=== PATIENT | female | born 1945 | race American Indian/Alaskan Native ===

== ENCOUNTER 2019-03-06 17:36 | Emergency (ER) | payer MEDICARE ==
--- NOTE | 2019-03-06 17:51 | Emergency Department Report ---
Blank Doc - Documentation Documentation: pt presents for possible syncope denies dizziness, light-headedness, or CP before syncopal episode has a hx of dementia no COLVIN, no vision changes tingling sensation in the bilateral hands denies any pain states she did have a COLVIN initially denies any blood thinner never had syncopal episode before no SOB PMHx HTN former smoker 2012 former drinker 3 years ago no drug use
[2019-03-06 18:27] LABS: Basophils # (Auto) 0.1 K/mm3 (0.0-0.1); Basophils % (Auto) 0.8 % (0.0-1.8); Eosinophils % (Auto) 0.5 % (0.0-4.3); Hematocrit 30.3 % (30.3-42.9); Hemoglobin 10.1 gm/dl (10.1-14.3); Lymphocytes # (Auto) 1.2 K/mm3 (1.2-5.4); Lymphocytes % (Auto) 17.5 % (13.4-35.0); Mean Corpuscular HGB Conc 33 % (30-34); Mean Corpuscular Volume 85 fl (79-97); Monocytes # (Auto) 0.5 K/mm3 (0.0-0.8); Monocytes % (Auto) 7.7 % (0.0-7.3); Platelet Count 245 K/mm3 (140-440); Red Blood Count 3.57 M/mm3 (3.65-5.03); Red Cell Distribution Width 14.1 % (13.2-15.2)
--- NOTE | 2019-03-06 18:36 | Cat Scan Report ---
PROCEDURE: CT CERVICAL SPINE WO CON TECHNIQUE: Computerized tomography of the cervical spine was performed from the skull base to T1 wit hout contrast material. CT DOSE LENGTH PRODUCT: 311.1 mGycm HISTORY: syncope, fall COMPARISONS: None . FINDINGS: No acute fracture or subluxation. Vertebral body heights are maintained. Multilevel degenerative changes of cervical spine most prominent from C4-C7 with disc osteophyte comp lexes noted and mild to moderate central canal stenosis. Multilevel degenerative uncovertebral hypert rophic changes noted. Other: No additional findings . IMPRESSION: No acute fracture or subluxation. Multilevel degenerative changes of cervical spine most prominent from C4-C7 with disc osteophyte comp lexes noted and mild to moderate central canal stenosis. Multilevel degenerative uncovertebral hypert rophic changes noted. This document is electronically signed by Nicole Arshad MD., Mar 06 2019 06:33:54 PM ET
[2019-03-06 18:40] LABS: INR 1.04 (0.87-1.13); Partial Thromboplastin Time 26.4 Sec. (24.2-36.6)
[2019-03-06 18:43] LABS: Albumin 4.2 g/dL (3.9-5); Calcium 9.1 mg/dL (8.4-10.2)
--- NOTE | 2019-03-06 18:47 | Cat Scan Report ---
PROCEDURE: CT HEAD/BRAIN WO CON TECHNIQUE: Computerized tomography of the head was performed without contrast material. CT DOSE LENGTH PRODUCT: 884.8 mGycm HISTORY: Syncope, fall. COMPARISONS: None. FINDINGS: The ventricles are normal in size. There is mild evidence of chronic ischemic white matter disease. 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 There are no mass lesions. The re is no intracranial hemorrhage. The calvarium appears intact. The mastoid air cells and paranasal s inuses are clear as far as visualized. IMPRESSION: Normal study for age. This document is electronically signed by Osorio Mckeon MD., Mar 06 2019 06:45:28 PM ET
[2019-03-06] MEDS ORDERED: NACL 0.9% 1000 ML 1,000 ML IV ONE (20:47)
--- NOTE | 2019-03-06 20:52 | Emergency Department Report ---
ED Syncope HPI - General Chief Complaint: Fall Stated Complaint: FELL OUT/HEAD PAIN Time Seen by Provider: 03/06/19 17:48 Source: patient, family - History of Present Illness Initial Comments: Patient is a 74-year-old female with history of hypertension brought to the emergency room by her son for evaluation of syncopal episode and a fall that happened around 4 PM today. Son stated that his mother has been diagnosed with dementia so she does not remember much about when he came back from outside when he ring the chau and she told him that she is coming and he waited for her but she could not, so he opened the door and he found her sitting on the floor, sweating but alert oriented according to his report. Patient denied any prior history of chest pain, shortness of breath, weakness numbness or tingling sensation. Timing/Prior Episodes: no prior history, single episode today Precipitating Factors: Positive: lightheadedness Context: standing Loss of Consciousness: no loss of consciousness Current Symptoms: back to normal - Related Data Allergies/Adverse Reactions: Allergies No Known Allergies Allergy (Unverified 03/06/19 17:37) ED Review of Systems ROS: Stated complaint: FELL OUT/HEAD PAIN Other details as noted in HPI Comment: All other systems reviewed and negative Constitutional: denies: chills, fever Respiratory: denies: cough, orthopnea, shortness of breath, SOB with exertion Cardiovascular: denies: chest pain, palpitations Gastrointestinal: denies: abdominal pain, nausea Neurological: denies: headache, weakness, numbness, paresthesias ED Past Medical Hx - Past Medical History Hx Hypertension: Yes Additional medical history: dementia - Surgical History Past Surgical History?: No - Social History Smoking Status: Never Smoker Substance Use Type: None ED Physical Exam - General Limitations: No Limitations General appearance: alert, in no apparent distress - Head Head exam: Present: atraumatic, normocephalic, normal inspection - Eye Eye exam: Present: normal appearance - ENT ENT exam: Present: normal exam, normal orophraynx, mucous membranes moist - Neck Neck exam: Present: normal inspection, full ROM. Absent: tenderness, meningismus, lymphadenopathy, thyromegaly - Respiratory Respiratory exam: Present: normal lung sounds bilaterally. Absent: respiratory distress, wheezes, rales, rhonchi, chest wall tenderness, accessory muscle use, decreased breath sounds, prolonged expiratory - Cardiovascular Cardiovascular Exam: Present: regular rate, normal heart sounds, systolic murmur (3/6) - GI/Abdominal GI/Abdominal exam: Present: soft, normal bowel sounds. Absent: distended, tenderness, guarding, rebound, rigid, organomegaly, mass, bruit, pulsatile mass, hernia - Extremities Exam Extremities exam: Present: normal inspection, full ROM, normal capillary refill. Absent: pedal edema, calf tenderness - Back Exam Back exam: Present: normal inspection, full ROM. Absent: CVA tenderness (R), CVA tenderness (L), muscle spasm, paraspinal tenderness, vertebral tenderness - Neurological Exam Neurological exam: Present: alert, oriented X3, CN II-XII intact, normal gait, reflexes normal - Skin Skin exam: Present: warm, intact, normal color ED Course Vital Signs 03/06/19 03/06/19 03/06/19 17:55 20:12 20:15 Temperature 98.9 F Pulse Rate 76 105 H 80 Respiratory 16 17 Rate Blood Pressure 142/60 161/64 O2 Sat by Pulse 100 100 Oximetry 03/06/19 03/06/19 03/06/19 20:31 20:45 21:01 Temperature Pulse Rate 76 78 76 Respiratory 18 12 17 Rate Blood Pressure 119/33 161/64 162/69 O2 Sat by Pulse 99 100 Oximetry 03/06/19 03/06/19 21:15 21:30 Temperature Pulse Rate 75 74 Respiratory 17 11 L Rate Blood Pressure 162/69 132/77 O2 Sat by Pulse 99 100 Oximetry ED Medical Decision Making - Lab Data Result diagrams: 03/06/19 18:13 03/06/19 18:13 - EKG Data -: EKG Interpreted by Ri EKG shows normal: sinus rhythm Rate: normal - EKG Data Interpretation: no acute changes - Radiology Data Radiology results: report reviewed CT brain is unremarkable. - Medical Decision Making Patient is a 74-year-old female with history of hypertension brought to the emergency room by her son for evaluation of syncopal episode and a fall that happened around 4 PM today. Son stated that his mother has been diagnosed with dementia so she does not remember much about when he came back from outside when he ring the chau and she told him that she is coming and he waited for her but she could not, so he opened the door and he found her sitting on the floor, sweating but alert oriented according to his report. Patient denied any prior history of chest pain, shortness of breath, weakness numbness or tingling sensation. Patient received a liter of fluids because the blood pressure is a little bit on the low side. Patient stated that she is feeling much better. No dizziness or syncope observed. EKG with no ST elevation. CT brain is negative for acute finding. Labs reviewed that is unremarkable. I advised patient and I'll send to follow up with her primary care physician in the next 2-3 days and to return to the ER if symptoms are not improved. Critical care attestation.: If time is entered above; I have spent that time in minutes in the direct care of this critically ill patient, excluding procedure time. ED Disposition Clinical Impression: Syncope, Hypotension Disposition: DC-01 TO HOME OR SELFCARE Is pt being admited?: No Condition: Stable Instructions: Syncope (ED), Hypotension (ED) Referrals: PRIMARY CARE, [Primary Care Provider] - 3-5 Days
[2019-03-06 22:46] VITALS: BP 113/50
== END 2019-03-06 22:51 | disposition home or self-care (01) ==
LOC: ED 17:36
DX: I95.9 Hypotension, unspecified (principal); I10 Essential (primary) hypertension
CPT/HCPCS: 36415; 70450; 72125; 80053; 82140; 83735; 84100; 84484; 85025; 85379; 85610; 85730; 93005; 93010; 96360; 99284; J7030